=== PATIENT | male | born 1955 | race Caucasian/White ===

== ENCOUNTER 2017-12-18 17:00 | Emergency (ER) | payer SELFPAY ==
[2017-12-18 18:49] LABS: Amphetamine Detected (NotDetected); Barbiturates Screen Not Detected (NotDetected); Benzodiazepine Screen Not Detected (NotDetected); Cocaine Metabolite Screen Not Detected (NotDetected); Medtox Control Line Valid? VALID (VALID); Medtox Reader # READER 1; Methadone Not Detected (NotDetected); Methamphetamine Detected (NotDetected); Opiate Screen Not Detected (NotDetected); Oxycodone Screen Not Detected (NotDetected); Phencyclidine (PCP) Not Detected (NotDetected); THC/Cannabinoid Screen Not Detected (NotDetected); Tricyclic Screen Not Detected (NotDetected)
[2017-12-18 18:53] LABS: Bilirubin Negative (Negative); Blood, Urine Negative (Negative); Clarity CLEAR (Clear); Glucose, Urine (Dipstick) >=1000 mg/dL (Negative); Leukocyte Negative (Negative); Nitrite Negative (Negative); Protein, Urine (Dipstick) Trace mg/dL (Neg-Trace); Specific Gravity, Urine 1.038 (1.002-1.036); Urobilinogen 0.2 mg/dL (0.2-1.0); pH, Urine 5.5 (5.0-9.0)
[2017-12-18 18:53] LABS: #Basophils 0.1 thou/uL (0.0-0.2); #Eosinphils 0.5 thou/uL (0.0-0.7); #Lymphocytes 2.1 thou/uL (1.20-3.40); #Monocytes 0.8 thou/uL (0.11-0.59); %Basophils 1.2 % (0.0-1.0); %Eosinophils 6.1 % (0.0-10.0); %Lymphocytes 24.7 % (21.0-51.0); %Monocytes 9.5 % (0.0-10.0); %Neutrophils 58.6 % (42.0-75.0); Hemoglobin 13.2 g/dL (14.0-18.0); Mean Corpuscular HGB CONC 34.8 g/dL (32.0-36.0); Mean Corpuscular Hemoglobin 29.4 pg (27.0-31.0); Mean Corpuscular Volume 84.5 fL (78.0-98.0); Mean Platelet Volume 7.6 fL (7.4-10.4); Platelet Count 217 thou/uL (130-400); RBC Distribution Width 11.8 % (11.5-14.5); White Blood Cell (WBC) Count 8.5 thou/uL (4.8-10.8)
[2017-12-18 19:10] LABS: ALT (SGPT) 17 U/L (8-55); AST (SGOT) 14 U/L (5-34); Albumin 4.1 g/dL (3.4-4.8); Alkaline Phosphatase 65 U/L (40-150); Anion Gap 12 mmol/L (10-20); BUN (Urea Nitrogen) 20 mg/dL (8.4-25.7); Bilirubin, Total 0.4 mg/dL (0.2-1.2); CK (CPK) 138 U/L (30-200); Calc. Creatinine Clearance 0 mL/min (70-130); Carbon Dioxide 26 mmol/L (23-31); Chloride 106 mmol/L (98-107); Estimated GFR-MDRD 51; Globulin 2.4 g/dL (2.4-3.5); Glucose 219 mg/dL (80-115); Lipase 67 U/L (8-78); Potassium 4.2 mmol/L (3.5-5.1); Protein, Total 6.5 g/dL (5.8-8.1); Sodium 140 mmol/L (136-145)
[2017-12-18 19:13] LABS: Troponin I Less than 0.010 ng/mL (< 0.028)
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
== END 2017-12-18 19:45 | disposition home or self-care (01) ==
LOC: ERS 17:00
DX: F15.10 Other stimulant abuse, uncomplicated (principal); E11.9 Type 2 diabetes mellitus without complications; E78.5 Hyperlipidemia, unspecified; I10 Essential (primary) hypertension; F17.210 Nicotine dependence, cigarettes, uncomplicated; Z79.899 Other long term (current) drug therapy; Z79.84 Long term (current) use of oral hypoglycemic drugs
CPT/HCPCS: 70450; 80053; 80306; 81003; 82550; 82553; 83690; 84484; 85025; 93005

== ENCOUNTER 2019-10-01 12:56 | Observation (INO) | payer MEDICARE ==
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
[2019-10-01 13:39] LABS: #Basophils 0.1 thou/uL (0.0-0.2); #Eosinphils 0.3 thou/uL (0.0-0.7); #Lymphocytes 1.2 thou/uL (1.20-3.40); #Monocytes 0.6 thou/uL (0.11-0.59); #Neutrophils 7.4 thou/uL (1.40-6.50); %Basophils 0.8 % (0.0-1.0); %Eosinophils 3.3 % (0.0-10.0); %Lymphocytes 12.8 % (21.0-51.0); %Monocytes 6.3 % (0.0-10.0); %Neutrophils 76.7 % (42.0-75.0); Hemoglobin 13.3 g/dL (14.0-18.0); Mean Corpuscular HGB CONC 32.8 g/dL (32.0-36.0); Mean Corpuscular Hemoglobin 28.1 pg (27.0-31.0); Mean Corpuscular Volume 85.5 fL (78.0-98.0); Mean Platelet Volume 8.5 fL (7.4-10.4); Platelet Count 183 thou/uL (130-400); RBC Distribution Width 11.8 % (11.5-14.5); Red Blood Cell (RBC) Count 4.73 mill/uL (4.70-6.10); White Blood Cell (WBC) Count 9.6 thou/uL (4.8-10.8)
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
[2019-10-01 14:03] LABS: ALT (SGPT) 23 U/L (8-55); AST (SGOT) 17 U/L (5-34); Acetaminophen Less than 6.0 mcg/mL (10.0-30.0); Albumin 3.9 g/dL (3.4-4.8); Alcohol Less than 10 mg/dL (Less than 10); Alkaline Phosphatase 71 U/L (40-110); Anion Gap 12 mmol/L (10-20); BUN (Urea Nitrogen) 22 mg/dL (8.4-25.7); Bilirubin, Total 0.6 mg/dL (0.2-1.2); Calc. Creatinine Clearance 0 mL/min (70-130); Calcium 9.8 mg/dL (7.8-10.44); Carbon Dioxide 25 mmol/L (23-31); Chloride 103 mmol/L (98-107); Estimated GFR-MDRD 57; Globulin 2.1 g/dL (2.4-3.5); Glucose 405 mg/dL (80-115); Potassium 4.1 mmol/L (3.5-5.1); Salicylate Less than 8.0 mg/dL (15.0-30.0); Sodium 136 mmol/L (136-145)
[2019-10-01] MEDS ORDERED: Ondansetron ODT 4 MG TAB ONE (14:46)
[2019-10-01] MEDS ORDERED: Meclizine HCl 25 MG TAB ONE (16:05)
[2019-10-01 17:42] LABS: Bilirubin Negative (Negative); Blood, Urine Negative (Negative); Clarity Clear (Clear); Glucose, Urine (Dipstick) Greater than 1000 mg/dL (Negative); Leukocyte Negative Leu/uL (Negative); Nitrite Negative (Negative); Protein, Urine (Dipstick) Negative (Neg-Trace); Urobilinogen Normal mg/dL (Less than 2)
[2019-10-01 17:57] LABS: Amphetamine Detected (NotDetected); Barbiturates Screen Not Detected (NotDetected); Benzodiazepine Screen Not Detected (NotDetected); Cocaine Metabolite Screen Not Detected (NotDetected); Medtox Control Line Valid? VALID (VALID); Medtox Reader # READER 4; Methadone Not Detected (NotDetected); Methamphetamine Detected (NotDetected); Opiate Screen Not Detected (NotDetected); Oxycodone Screen Not Detected (NotDetected); Phencyclidine (PCP) Not Detected (NotDetected); THC/Cannabinoid Screen Not Detected (NotDetected); Tricyclic Screen Not Detected (NotDetected)
[2019-10-01] MEDS ORDERED: Dextrose 50% Abboject 50 ML SYRINGE SLOW IVP PRN ×2 (17:59→18:03)
[2019-10-01] MEDS ORDERED: hydrALAZINE 20 MG/ML VIAL SLOW IVP PRN (17:59)
[2019-10-01] MEDS ORDERED: Dextrose 5% in Water 1,000 ML IV PRN ×2 (17:59→18:03)
[2019-10-01] MEDS ORDERED: Promethazine HCl 25 MG in Sodium Chloride 0.9% 50 ML IVPB PRN (18:06)
[2019-10-01] MEDS ORDERED: Scopolamine 1.5 mg/72 hour Patch TD SCH (18:30)
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
[2019-10-01] MEDS ORDERED: Ondansetron PF 4 MG/2 ML Vial IVP PRN (19:50)
[2019-10-01] MEDS: Senokot S 8.6-50 MG TAB PO SCH (21:32)
[2019-10-01] MEDS: Sodium Chloride 0.9% 1,000 ML IV SCH (21:33)
[2019-10-01] MEDS: Insulin Regular 300 UNITS/3 ML VIAL SC PRN (21:33)
[2019-10-01 22:21] VITALS: BMI 25.2
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
[2019-10-02] MEDS: Acetaminophen 500 MG TAB PO SCH ×3 (00:08→13:56)
[2019-10-02] MEDS: Sodium Chloride 0.9% 1,000 ML IV SCH (04:33)
[2019-10-02] MEDS: Insulin Regular 300 UNITS/3 ML VIAL SC PRN ×2 (05:50→13:55)
[2019-10-02] MEDS ORDERED: Allopurinol 300 MG TAB PO SCH (09:00)
[2019-10-02] MEDS ORDERED: Tamsulosin HCl 0.4 MG CAP PO SCH (09:00)
[2019-10-02] MEDS: Senokot S 8.6-50 MG TAB PO SCH (12:05)
[2019-10-02 12:18] VITALS: BP 162/81; TEMP 97
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
[2019-10-02 17:02] LABS: Hemoglobin A1c Greater than 14.0 % (4.0-6.0)
== END 2019-10-02 15:35 | disposition home or self-care (01) ==
LOC: ERS 12:56 → SURG A 17:45
PROVIDERS: ADMIT Surgery; ATTEND Surgery
DX: S06.0X9A Concussion with loss of consciousness of unspecified duration, initial encounter (principal); R40.2410 Glasgow coma scale score 13-15, unspecified time; E11.65 Type 2 diabetes mellitus with hyperglycemia; M10.9 Gout, unspecified; F17.210 Nicotine dependence, cigarettes, uncomplicated; M47.812 Spondylosis without myelopathy or radiculopathy, cervical region; F15.11 Other stimulant abuse, in remission; F12.10 Cannabis abuse, uncomplicated; Z79.1 Long term (current) use of non-steroidal anti-inflammatories (NSAID); Z79.4 Long term (current) use of insulin; Z79.899 Other long term (current) drug therapy; V69.3XXA Occupant (driver) (passenger) of heavy transport vehicle injured in unspecified nontraffic accident, initial encounter
CPT/HCPCS: 70450; 71250; 72125; 74177; 80053; 80306; 80307; 81003; 82962 ×2; 83036; 85025; 96361 ×3; 96374; 97139 ×3; 99285; G0378 ×3; J0360; J1815; Q0162; 36416; 96360; G0390

== ENCOUNTER 2019-10-14 23:22 | Emergency (ER) | payer MEDICARE, OTHER ==
[2019-10-14] MEDS ORDERED: Ibuprofen 800 MG TAB ONE (23:41)
[2019-10-15 00:29] LABS: Bilirubin Negative (Negative); Blood, Urine Negative (Negative); Clarity Clear (Clear); Glucose, Urine (Dipstick) Greater than 1000 mg/dL (Negative); Leukocyte Negative Leu/uL (Negative); Nitrite Negative (Negative); Protein, Urine (Dipstick) Negative (Neg-Trace); Urobilinogen Normal mg/dL (Less than 2)
== END 2019-10-15 00:46 | disposition home or self-care (01) ==
LOC: ERS 23:22
DX: F07.81 Postconcussional syndrome (principal); E11.9 Type 2 diabetes mellitus without complications; E78.00 Pure hypercholesterolemia, unspecified; E78.5 Hyperlipidemia, unspecified; I10 Essential (primary) hypertension; F17.210 Nicotine dependence, cigarettes, uncomplicated; Z79.84 Long term (current) use of oral hypoglycemic drugs; Z79.899 Other long term (current) drug therapy
CPT/HCPCS: 81003; 99284

== ENCOUNTER 2020-05-22 08:42 | Outpatient (CLI) | payer MEDICARE ==
--- NOTE | 2020-05-22 10:08 | CT ---
CT ABDOMEN AND PELVIS WITH AND WITHOUT IV CONTRAST 05/22/2020 CLINICAL INFORMATION: Urinary bladder cancer. Elevated PSA. Prostate cancer. History of prior radiation treatment. COMPARISON: Noncontrast CT abdomen and pelvis on 10/01/2019 Technique: Multiple contiguous axial CT images are obtained through the abdomen and pelvis with IV contrast. Cor onal reformatted images are provided. FINDINGS: Lower Chest: Lung bases are clear. No pulmonary nodule is seen at either visualized lung bases. Vessels: Vascular calcifications are present in the abdominal aorta and iliac arteries. Abdomen: Portal vein:Patent Gallbladder: Within normal limits for CT imaging. Liver: within normal limits. Spleen: within normal limits. Pancreas: within normal limits. Adrenals: within normal limits. Kidneys: Symmetric bilateral perinephric stranding noted which is nonspecific. This is stable from pr ior exam. A subcentimeter too small to characterize hypodense lesion is seen in the midportion left kidney. A few ill-defined low attenuation areas are seen in the midportion and inferior pole left kid nora. This may be related to the phase of enhancement as these areas are not seen on the delayed images through the level of the kidneys. Pyelonephritis would be difficult to entirely exclude. No pe rinephric fluid collection is seen. There is no hydronephrosis. Bowel: Small amount retained fecal material is seen throughout the colon. Loops of small bowel are no rmal in caliber. Appendix: The appendix is visualized and normal in caliber. Peritoneum: No ascites or free air; no fluid collection. Mesentery and Retroperitoneum: There is a mildly enlarged lymph node seen within the lateral right pe lvis which measures 1.2 cm in short axis dimension. No additional enlarged lymph nodes are seen Abdominal Wall: within normal limits. Pelvis: Reproductive Organs: No pelvic masses. Bladder: Mostly urinary bladder do appear mildly prominent, this is probably related to incomplete di stention. Bones: Degenerative changes are seen in the spine. No suspicious lytic or sclerotic osseous lesions a re identified. There is a remote fracture involving the tip of the left transverse process L2 vertebral body. IMPRESSION: 1. Mildly enlarged right pelvic lymph node. No additional enlarged lymph nodes are seen. 2. Slight heterogeneity inferior pole left kidney on portal venous phase imaging which is not appreci ated on delayed phase of imaging. This could be related to phase of enhancement but is asymmetric compared to the contralateral right kidney. Pyelonephritis would be difficult to exclude. Urinalysis is suggested for further evaluation.
[2020-05-22] MEDS ORDERED: Iopamidol 370 76% 100 ML VIAL ONE (13:17)
--- NOTE | 2020-05-22 13:19 | NM ---
NM Bone Scan STANDARD History: Prostate cancer. Bladder cancer. Comparison: CT examination same day Findings: Delayed whole-body imaging performed after the intravenous administration 32.6 mCi techneti um 99m MDP. Adequate background of radiotracer uptake. Degenerative change L4/L5 and L3/L4. Mild to moderate T9/T 10 degenerative uptake. Urinary bladder and kidneys are visualized. No abnormal uptake to suggest osseous metastatic disease. Impression: No evidence for osseous metastatic disease.
== END 2020-05-22 08:43 | disposition home or self-care (01) ==
LOC: CT 08:42
PROVIDERS: ATTEND Urology
DX: C67.9 Malignant neoplasm of bladder, unspecified (principal); C61 Malignant neoplasm of prostate; R97.21 Rising PSA following treatment for malignant neoplasm of prostate; R59.0 Localized enlarged lymph nodes; R93.422 Abnormal radiologic findings on diagnostic imaging of left kidney
CPT/HCPCS: 74178; 78306; 82565; A9503; Q9967

== ENCOUNTER 2020-08-27 20:33 | Inpatient (IN) | payer MEDICARE, MEDICAID ==
[2020-08-27 21:43] LABS: #Basophils 0.1 thou/uL (0.0-0.2); #Eosinphils 0.2 thou/uL (0.0-0.7); #Lymphocytes 1.3 thou/uL (1.20-3.40); #Monocytes 1.2 thou/uL (0.11-0.59); #Neutrophils 9.9 thou/uL (1.40-6.50); %Basophils 0.4 % (0.0-1.0); %Eosinophils 1.7 % (0.0-10.0); %Lymphocytes 9.9 % (21.0-51.0); %Monocytes 9.5 % (0.0-10.0); %Neutrophils 78.6 % (42.0-75.0); Hemoglobin 15.3 g/dL (14.0-18.0); Mean Corpuscular HGB CONC 33.4 g/dL (32.0-36.0); Mean Corpuscular Hemoglobin 28.2 pg (27.0-31.0); Mean Corpuscular Volume 84.5 fL (78.0-98.0); Mean Platelet Volume 8.5 fL (7.4-10.4); Platelet Count 251 thou/uL (130-400); RBC Distribution Width 11.7 % (11.5-14.5); Red Blood Cell (RBC) Count 5.41 mill/uL (4.70-6.10); White Blood Cell (WBC) Count 12.6 thou/uL (4.8-10.8)
[2020-08-27 22:13] LABS: ALT (SGPT) 17 U/L (8-55); AST (SGOT) 10 U/L (5-34); Albumin 3.7 g/dL (3.4-4.8); Alkaline Phosphatase 128 U/L (40-110); Anion Gap 15 mmol/L (10-20); BUN (Urea Nitrogen) 27 mg/dL (8.4-25.7); Bilirubin, Total 0.5 mg/dL (0.2-1.2); Calc. Creatinine Clearance 0 mL/min (70-130); Calcium 10.6 mg/dL (7.8-10.44); Carbon Dioxide 28 mmol/L (23-31); Chloride 92 mmol/L (98-107); Globulin 3.3 g/dL (2.4-3.5); Glucose 462 mg/dL (80-115); Potassium 5.1 mmol/L (3.5-5.1); Sodium 130 mmol/L (136-145)
[2020-08-27] MEDS ORDERED: Cefepime 2 GM VIAL ONE ×2 (23:02→23:03)
[2020-08-27] MEDS ORDERED: Ketorolac Tromethamine 30 MG/ML VIAL ONE (23:02)
[2020-08-27] MEDS ORDERED: Vancomycin 1.5 GRAM/300 ML BAG 1.5 GM in Premix Bag 1 BAG IVPB SCH (23:30)
[2020-08-28 00:40] VITALS: BMI 24.3
[2020-08-28] MEDS ORDERED: Ondansetron ODT 4 MG TAB SL PRN (00:45)
[2020-08-28] MEDS ORDERED: Acetaminophen 325 MG TAB PO PRN ×2 (00:45→08:06)
[2020-08-28] MEDS ORDERED: Ondansetron PF 4 MG/2 ML Vial IVP PRN ×4 (00:45→10:30)
[2020-08-28 05:12] LABS: SARS-CoV-2 PCR by NAA Not Detected (NotDetected)
[2020-08-28] MEDS ORDERED: Dextrose 50% Abboject 50 ML SYRINGE IVP PRN (08:15)
[2020-08-28] MEDS ORDERED: Insulin Regular 300 UNITS/3 ML VIAL SC PRN (08:15)
[2020-08-28] MEDS ORDERED: Dextrose 5% in Water 1,000 ML IV PRN (08:15)
[2020-08-28] MEDS: Dextrose 5 % And 0.9 % NaCl 1,000 ML IV SCH ×2 (08:55→18:38)
[2020-08-28] MEDS: Enoxaparin Sodium 30 MG/0.3 ML SYRINGE SC SCH (09:03)
[2020-08-28] MEDS: Cefepime 2 GM in Sodium Chloride 0.9% 100 ML IVPB SCH ×2 (09:03→18:26)
[2020-08-28] MEDS: Alogliptin 25 MG TAB PO SCH (09:03)
[2020-08-28] MEDS: Vancomycin 1 GM in Premix Bag 1 BAG IVPB SCH ×2 (09:57→22:05)
[2020-08-28] MEDS ORDERED: diphenhydrAMINE 25 MG CAP PO PRN (10:30)
[2020-08-28] MEDS ORDERED: Morphine 4 MG/ML VIAL SLOW IVP SCH (10:30)
[2020-08-28] MEDS ORDERED: Zolpidem Tartrate 5 MG TAB PO PRN (10:30)
[2020-08-28] MEDS ORDERED: Promethazine HCl 25 MG/ML VIAL IM PRN (10:30)
[2020-08-28] MEDS ORDERED: Naloxone HCl 0.4 mg/ml Vial IV PRN (10:30)
[2020-08-28] MEDS ORDERED: diphenhydrAMINE 50 MG/ML VIAL IM/IV PRN (10:30)
[2020-08-28] MEDS: Acetaminophen 500 MG TAB PO SCH ×2 (11:47→18:27)
[2020-08-28] MEDS: HYDROmorphone 10 mg/100 ml CADD IVPB PRN ×2 (12:56→19:51)
[2020-08-28] MEDS ORDERED: Fentanyl 250 MCG/5 ML VIAL ONE (13:39)
[2020-08-28] MEDS ORDERED: Midazolam HCl 2 mg/2 ml Vial ONE (16:45)
[2020-08-28] MEDS ORDERED: Fentanyl 100 MCG/2 ML VIAL ONE (16:45)
[2020-08-28] MEDS ORDERED: Propofol 500 MG/50 ML VIAL ONE ×2 (16:45→16:49)
[2020-08-28] MEDS ORDERED: Lidocaine 1% PF 5 ML VIAL ONE (17:10)
[2020-08-28] MEDS ORDERED: Ondansetron PF 4 MG/2 ML Vial ONE (17:10)
[2020-08-28] MEDS ORDERED: PROPOFOL 200 MG/20 ML VIAL ONE (17:10)
[2020-08-28] MEDS ORDERED: Promethazine HCl 25 MG/ML VIAL SLOW IVP PRN (17:24)
[2020-08-28] MEDS ORDERED: Ondansetron HCl/PF 4 MG/2 ML Vial IVP PRN (17:24)
[2020-08-28] MEDS ORDERED: traMADol HCl 50 MG TAB PO PRN (17:45)
[2020-08-29] MEDS: Ibuprofen 600 MG TAB PO PRN (01:06)
[2020-08-29] MEDS: Acetaminophen 500 MG TAB PO SCH ×4 (01:06→17:35)
[2020-08-29] MEDS: Cefepime 2 GM in Sodium Chloride 0.9% 100 ML IVPB SCH ×3 (01:10→17:42)
[2020-08-29] MEDS: Dextrose 5 % And 0.9 % NaCl 1,000 ML IV SCH ×2 (04:17→13:39)
[2020-08-29 05:08] LABS: #Basophils 0.1 thou/uL (0.0-0.2); #Eosinphils 0.3 thou/uL (0.0-0.7); #Lymphocytes 1.5 thou/uL (1.20-3.40); #Monocytes 1.1 thou/uL (0.11-0.59); #Neutrophils 6.4 thou/uL (1.40-6.50); %Basophils 0.6 % (0.0-1.0); %Eosinophils 2.9 % (0.0-10.0); %Lymphocytes 16.2 % (21.0-51.0); %Monocytes 11.7 % (0.0-10.0); %Neutrophils 68.6 % (42.0-75.0); Hemoglobin 13.3 g/dL (14.0-18.0); Mean Corpuscular HGB CONC 31.7 g/dL (32.0-36.0); Mean Corpuscular Hemoglobin 26.8 pg (27.0-31.0); Mean Corpuscular Volume 84.6 fL (78.0-98.0); Platelet Count 236 thou/uL (130-400); RBC Distribution Width 11.7 % (11.5-14.5); Red Blood Cell (RBC) Count 4.97 mill/uL (4.70-6.10); White Blood Cell (WBC) Count 9.3 thou/uL (4.8-10.8)
[2020-08-29 05:17] LABS: Hemoglobin A1c Greater than 14.0 % (4.0-6.0)
[2020-08-29 05:31] LABS: Anion Gap 12 mmol/L (10-20); BUN (Urea Nitrogen) 18 mg/dL (8.4-25.7); Calc. Creatinine Clearance 80 mL/min (70-130); Calcium 9.4 mg/dL (7.8-10.44); Carbon Dioxide 23 mmol/L (23-31); Chloride 102 mmol/L (98-107); Glucose 292 mg/dL (80-115); Potassium 4.3 mmol/L (3.5-5.1); Sodium 133 mmol/L (136-145)
[2020-08-29] MEDS: Insulin Regular 300 UNITS/3 ML VIAL SC PRN ×3 (05:56→17:36)
[2020-08-29] MEDS: Alogliptin 25 MG TAB PO SCH (09:46)
[2020-08-29] MEDS: Meloxicam 15 MG TAB PO SCH (09:46)
[2020-08-29] MEDS: Enoxaparin Sodium 30 MG/0.3 ML SYRINGE SC SCH (09:46)
[2020-08-29] MEDS: Vancomycin 1 GM in Premix Bag 1 BAG IVPB SCH (10:44)
[2020-08-29] MEDS: VANCOMYCIN 2 GRAM/400 ML BAG 2 GM in Premix Bag 1 BAG IVPB SCH (11:51)
[2020-08-29] MEDS ORDERED: Lantus 1000 UNITS/10 ML VIAL SC SCH (13:15)
[2020-08-29] MEDS ORDERED: Sodium Chloride 0.9% 1,000 ML IV SCH (13:15)
[2020-08-29] MEDS: metFORMIN 500 MG TAB PO SCH (17:34)
[2020-08-29] MEDS: Lisinopril 20 MG TAB PO SCH (21:24)
[2020-08-29] MEDS: Simvastatin 10 MG TAB PO SCH (21:25)
[2020-08-30] MEDS: Acetaminophen 500 MG TAB PO SCH ×4 (00:13→17:43)
[2020-08-30] MEDS: VANCOMYCIN 2 GRAM/400 ML BAG 2 GM in Premix Bag 1 BAG IVPB SCH ×2 (00:13→11:20)
[2020-08-30] MEDS: Cefepime 2 GM in Sodium Chloride 0.9% 100 ML IVPB SCH ×3 (01:53→17:37)
[2020-08-30] MEDS: HYDROmorphone 10 mg/100 ml CADD IVPB PRN (05:22)
[2020-08-30 05:46] LABS: #Basophils 0.1 thou/uL (0.0-0.2); #Eosinphils 0.3 thou/uL (0.0-0.7); #Lymphocytes 1.5 thou/uL (1.20-3.40); #Monocytes 0.8 thou/uL (0.11-0.59); #Neutrophils 5.3 thou/uL (1.40-6.50); %Basophils 0.8 % (0.0-1.0); %Eosinophils 3.9 % (0.0-10.0); %Monocytes 10.1 % (0.0-10.0); %Neutrophils 66.3 % (42.0-75.0); Hemoglobin 13.1 g/dL (14.0-18.0); Mean Corpuscular HGB CONC 33.6 g/dL (32.0-36.0); Mean Corpuscular Hemoglobin 28.6 pg (27.0-31.0); Mean Corpuscular Volume 85.1 fL (78.0-98.0); Mean Platelet Volume 7.9 fL (7.4-10.4); Platelet Count 242 thou/uL (130-400); RBC Distribution Width 11.7 % (11.5-14.5); Red Blood Cell (RBC) Count 4.57 mill/uL (4.70-6.10)
[2020-08-30 06:04] LABS: Anion Gap 10 mmol/L (10-20); BUN (Urea Nitrogen) 18 mg/dL (8.4-25.7); Calc. Creatinine Clearance 92 mL/min (70-130); Calcium 9.2 mg/dL (7.8-10.44); Carbon Dioxide 22 mmol/L (23-31); Chloride 106 mmol/L (98-107); Glucose 124 mg/dL (80-115); Potassium 4.2 mmol/L (3.5-5.1); Sodium 134 mmol/L (136-145); Uric Acid 2.7 mg/dL (3.5-7.2)
[2020-08-30] MEDS: metFORMIN 500 MG TAB PO SCH ×2 (08:21→17:37)
[2020-08-30] MEDS: Alogliptin 25 MG TAB PO SCH (08:21)
[2020-08-30] MEDS: Meloxicam 15 MG TAB PO SCH (08:21)
[2020-08-30] MEDS: Lisinopril 20 MG TAB PO SCH ×2 (08:21→20:01)
[2020-08-30] MEDS: Lantus 1000 UNITS/10 ML VIAL SC SCH (08:22)
[2020-08-30] MEDS: Enoxaparin Sodium 40 MG/0.4 ML SYRINGE SC SCH (08:22)
[2020-08-30] MEDS ORDERED: HYDROcodone/Acetaminophen 7.5/325 mg Tablet PO PRN (11:18)
[2020-08-30] MEDS: Ibuprofen 800 MG TAB PO SCH ×2 (11:21→17:37)
[2020-08-30] MEDS: Insulin Regular 300 UNITS/3 ML VIAL SC PRN ×2 (12:09→17:37)
[2020-08-30] MEDS: HYDROcodone/Acetaminophen 7.5/325 mg Tablet PO PRN ×2 (15:21→22:28)
[2020-08-30] MEDS: Simvastatin 10 MG TAB PO SCH (20:01)
[2020-08-30] MEDS: Terazosin HCl 5 MG CAP PO SCH (20:02)
[2020-08-30] MEDS: Ibuprofen 600 MG TAB PO PRN (22:29)
[2020-08-30] MEDS: Vancomycin 1.5 GRAM/300 ML BAG 1.5 GM in Premix Bag 1 BAG IVPB SCH (22:38)
[2020-08-31] MEDS: Acetaminophen 500 MG TAB PO SCH ×4 (00:13→18:23)
[2020-08-31] MEDS: Cefepime 2 GM in Sodium Chloride 0.9% 100 ML IVPB SCH ×3 (00:14→17:44)
[2020-08-31 05:53] LABS: #Basophils 0.1 thou/uL (0.0-0.2); #Eosinphils 0.2 thou/uL (0.0-0.7); #Lymphocytes 1.3 thou/uL (1.20-3.40); #Monocytes 0.5 thou/uL (0.11-0.59); #Neutrophils 4.2 thou/uL (1.40-6.50); %Basophils 0.8 % (0.0-1.0); %Eosinophils 3.1 % (0.0-10.0); %Monocytes 8.6 % (0.0-10.0); %Neutrophils 67.5 % (42.0-75.0); Mean Corpuscular HGB CONC 33.4 g/dL (32.0-36.0); Mean Corpuscular Hemoglobin 28.3 pg (27.0-31.0); Mean Corpuscular Volume 84.8 fL (78.0-98.0); Mean Platelet Volume 7.8 fL (7.4-10.4); Platelet Count 238 thou/uL (130-400); RBC Distribution Width 11.6 % (11.5-14.5); Red Blood Cell (RBC) Count 4.24 mill/uL (4.70-6.10); White Blood Cell (WBC) Count 6.3 thou/uL (4.8-10.8)
[2020-08-31 06:16] LABS: ALT (SGPT) 22 U/L (8-55); AST (SGOT) 21 U/L (5-34); Albumin 2.6 g/dL (3.4-4.8); Alkaline Phosphatase 161 U/L (40-110); Anion Gap 11 mmol/L (10-20); BUN (Urea Nitrogen) 22 mg/dL (8.4-25.7); Bilirubin, Direct 0.1 mg/dL (0.1-0.3); Bilirubin, Total 0.2 mg/dL (0.2-1.2); Calc. Creatinine Clearance 80 mL/min (70-130); Carbon Dioxide 20 mmol/L (23-31); Chloride 108 mmol/L (98-107); Glucose 71 mg/dL (80-115); Potassium 4.2 mmol/L (3.5-5.1); Protein, Total 5.3 g/dL (5.8-8.1); Sodium 135 mmol/L (136-145)
[2020-08-31] MEDS: Ibuprofen 800 MG TAB PO SCH ×3 (08:33→17:43)
[2020-08-31] MEDS: Calcium Carbonate 500 MG ChewTAB PO SCH ×3 (08:33→21:07)
[2020-08-31] MEDS: Alogliptin 25 MG TAB PO SCH (08:33)
[2020-08-31] MEDS: metFORMIN 500 MG TAB PO SCH ×2 (08:33→17:42)
[2020-08-31] MEDS: Lisinopril 20 MG TAB PO SCH ×2 (08:34→21:06)
[2020-08-31] MEDS: Lantus 1000 UNITS/10 ML VIAL SC SCH (08:34)
[2020-08-31] MEDS: Enoxaparin Sodium 40 MG/0.4 ML SYRINGE SC SCH (08:34)
[2020-08-31] MEDS: Vancomycin 1.5 GRAM/300 ML BAG 1.5 GM in Premix Bag 1 BAG IVPB SCH (11:49)
[2020-08-31] MEDS: HYDROcodone/Acetaminophen 7.5/325 mg Tablet PO PRN ×2 (11:51→17:39)
[2020-08-31] MEDS: Ciprofloxacin 500 MG TAB PO SCH (21:06)
[2020-08-31] MEDS: Sulfameth/Trimethoprim DS 800-160mg TAB PO SCH (21:06)
[2020-08-31] MEDS: Terazosin HCl 5 MG CAP PO SCH (21:07)
[2020-08-31] MEDS: Simvastatin 10 MG TAB PO SCH (21:07)
[2020-09-01] MEDS: Acetaminophen 500 MG TAB PO SCH ×4 (00:07→16:39)
[2020-09-01] MEDS: Ciprofloxacin 500 MG TAB PO SCH (06:09)
[2020-09-01] MEDS: Enoxaparin Sodium 40 MG/0.4 ML SYRINGE SC SCH (08:30)
[2020-09-01] MEDS: Lantus 1000 UNITS/10 ML VIAL SC SCH (08:30)
[2020-09-01] MEDS: Sulfameth/Trimethoprim DS 800-160mg TAB PO SCH (08:31)
[2020-09-01] MEDS: Lisinopril 20 MG TAB PO SCH (08:31)
[2020-09-01] MEDS: Ibuprofen 800 MG TAB PO SCH ×3 (08:31→16:38)
[2020-09-01] MEDS: Alogliptin 25 MG TAB PO SCH (08:31)
[2020-09-01] MEDS: Calcium Carbonate 500 MG ChewTAB PO SCH ×2 (08:31→14:55)
[2020-09-01] MEDS: metFORMIN 500 MG TAB PO SCH ×2 (08:31→16:38)
[2020-09-01 16:17] VITALS: BP 128/75; TEMP 98.2
[2020-09-01] MEDS: HYDROcodone/Acetaminophen 7.5/325 mg Tablet PO PRN (16:38)
== END 2020-09-01 18:22 | disposition home or self-care (01) | DRG 854 ==
LOC: ERS 20:33 → SURG B 22:48
PROVIDERS: ADMIT Specialist; ATTEND Specialist
PROC: 0Y6P0Z1 Detachment at Right 1st Toe, High, Open Approach (ICD-10-PCS; principal; 2020-08-28)
DX: A41.9 Sepsis, unspecified organism (principal); E87.1 Hypo-osmolality and hyponatremia; M86.171 Other acute osteomyelitis, right ankle and foot; E11.69 Type 2 diabetes mellitus with other specified complication; E78.5 Hyperlipidemia, unspecified; F17.210 Nicotine dependence, cigarettes, uncomplicated; F32.9 Major depressive disorder, single episode, unspecified; M10.9 Gout, unspecified; C61 Malignant neoplasm of prostate; I12.9 Hypertensive chronic kidney disease with stage 1 through stage 4 chronic kidney disease, or unspecified chronic kidney disease; N18.9 Chronic kidney disease, unspecified; E11.22 Type 2 diabetes mellitus with diabetic chronic kidney disease; F12.90 Cannabis use, unspecified, uncomplicated; M54.9 Dorsalgia, unspecified; Z79.4 Long term (current) use of insulin; Z85.51 Personal history of malignant neoplasm of bladder
CPT/HCPCS: 36415; 36416; 71045; 72070; 80048; 80053; 80076; 80202; 82010; 83036; 83605; 84153; 84484; 84550; 85025; 87040; 87635; 88305; 93005; 96365; 96375; J0692; J1650; J1815; J1885; J2250; J2270; J2405; J2704; J3010; J3370; J3490; U0003; U0005

== ENCOUNTER 2020-09-19 07:08 | Emergency (ER) | payer MEDICARE ==
[2020-09-19] MEDS ORDERED: EPINEPHrine 1 MG/ML AMP ONE (07:16)
[2020-09-19] MEDS ORDERED: Dexamethasone 10 MG/ML VIAL ONE (07:17)
[2020-09-19] MEDS ORDERED: diphenhydrAMINE 50 MG/ML VIAL ONE (07:17)
[2020-09-19] MEDS ORDERED: Ondansetron PF 4 MG/2 ML Vial ONE (07:24)
[2020-09-19 07:35] LABS: #Eosinphils 0.2 thou/uL (0.0-0.7); #Lymphocytes 1.2 thou/uL (1.20-3.40); #Monocytes 0.3 thou/uL (0.11-0.59); #Neutrophils 3.8 thou/uL (1.40-6.50); %Basophils 0.3 % (0.0-1.0); %Eosinophils 3.2 % (0.0-10.0); %Lymphocytes 22.3 % (21.0-51.0); %Neutrophils 68.2 % (42.0-75.0); Hemoglobin 12.4 g/dL (14.0-18.0); Mean Corpuscular HGB CONC 33.4 g/dL (32.0-36.0); Mean Corpuscular Hemoglobin 28.3 pg (27.0-31.0); Mean Corpuscular Volume 84.6 fL (78.0-98.0); Mean Platelet Volume 8.1 fL (7.4-10.4); Platelet Count 261 thou/uL (130-400); RBC Distribution Width 12.5 % (11.5-14.5); Red Blood Cell (RBC) Count 4.41 mill/uL (4.70-6.10); White Blood Cell (WBC) Count 5.5 thou/uL (4.8-10.8)
[2020-09-19 07:56] LABS: ALT (SGPT) 8 U/L (8-55); AST (SGOT) 7 U/L (5-34); Albumin 3.2 g/dL (3.4-4.8); Alkaline Phosphatase 86 U/L (40-110); Anion Gap 14 mmol/L (10-20); BUN (Urea Nitrogen) 38 mg/dL (8.4-25.7); Bilirubin, Total 0.2 mg/dL (0.2-1.2); CK (CPK) 39 U/L (30-200); Calc. Creatinine Clearance 0 mL/min (70-130); Calcium 9.7 mg/dL (7.8-10.44); Carbon Dioxide 25 mmol/L (23-31); Chloride 102 mmol/L (98-107); Globulin 2.5 g/dL (2.4-3.5); Glucose 297 mg/dL (80-115); Lipase 49 U/L (8-78); Potassium 4.6 mmol/L (3.5-5.1); Protein, Total 5.7 g/dL (5.8-8.1); Sodium 136 mmol/L (136-145)
[2020-09-19] MEDS ORDERED: Famotidine/PF 20 mg/2ml Vial ONE (07:56)
[2020-09-19 08:40] LABS: Acetaminophen Less than 6.0 mcg/mL (10.0-30.0); Alcohol Less than 10 mg/dL (Less than 10); Salicylate Less than 8.0 mg/dL (15.0-30.0)
[2020-09-19 10:26] LABS: Lactic Acid 1.4 mmol/L (0.5-2.2)
[2020-09-19 10:44] LABS: SARS-CoV-2 NAA Rapid Test Not Detected (NotDetected)
[2020-09-19 10:45] LABS: Bilirubin Negative (Negative); Blood, Urine Negative (Negative); Clarity Clear (Clear); Glucose, Urine (Dipstick) 150 mg/dL (Negative); Ketone, Urine Negative (Negative); Leukocyte Negative Leu/uL (Negative); Nitrite Negative (Negative); Protein, Urine (Dipstick) Negative (Neg-Trace); Specific Gravity, Urine 1.019 (1.002-1.036); Urobilinogen Normal mg/dL (Less than 2)
[2020-09-19 10:55] LABS: Amphetamine Detected (NotDetected); Barbiturates Screen Not Detected (NotDetected); Benzodiazepine Screen Not Detected (NotDetected); Cocaine Metabolite Screen Not Detected (NotDetected); Medtox Control Line Valid? VALID (VALID); Medtox Reader # READER 4; Methadone Not Detected (NotDetected); Methamphetamine Detected (NotDetected); Opiate Screen Detected (NotDetected); Oxycodone Screen Not Detected (NotDetected); Phencyclidine (PCP) Not Detected (NotDetected); THC/Cannabinoid Screen Not Detected (NotDetected); Tricyclic Screen Not Detected (NotDetected)
[2020-09-19] MEDS ORDERED: Iopamidol-370 76% 500 ML 1 ML ONE (12:35)
== END 2020-09-19 12:50 | disposition home or self-care (01) ==
LOC: ERS 07:08
DX: R06.02 Shortness of breath (principal); T36.8X5A Adverse effect of other systemic antibiotics, initial encounter; E11.9 Type 2 diabetes mellitus without complications; E78.5 Hyperlipidemia, unspecified; E78.00 Pure hypercholesterolemia, unspecified; I10 Essential (primary) hypertension; M10.9 Gout, unspecified; F17.210 Nicotine dependence, cigarettes, uncomplicated; Z79.84 Long term (current) use of oral hypoglycemic drugs; Z79.899 Other long term (current) drug therapy
CPT/HCPCS: 0240U; 71045; 71275; 80053; 80306; 80307; 81003; 82550; 83605; 83690; 83880; 84484; 85025; 85379; 87040; 93005; 96372; 96374; 96375; 99285; 36415; J0171; J1100; J1200; J2405; Q9967; S0028

== ENCOUNTER 2020-09-30 12:42 | Emergency (ER) | payer MEDICARE, MEDICAID ==
[2020-09-30 13:33] LABS: #Basophils 0.1 thou/uL (0.0-0.2); #Eosinphils 0.5 thou/uL (0.0-0.7); #Lymphocytes 1.7 thou/uL (1.20-3.40); #Monocytes 0.8 thou/uL (0.11-0.59); #Neutrophils 7.6 thou/uL (1.40-6.50); %Basophils 1.1 % (0.0-1.0); %Eosinophils 4.6 % (0.0-10.0); %Lymphocytes 16.2 % (21.0-51.0); %Monocytes 7.8 % (0.0-10.0); %Neutrophils 70.3 % (42.0-75.0); Mean Corpuscular HGB CONC 33.3 g/dL (32.0-36.0); Mean Corpuscular Hemoglobin 28.2 pg (27.0-31.0); Mean Corpuscular Volume 84.7 fL (78.0-98.0); Mean Platelet Volume 7.7 fL (7.4-10.4); Platelet Count 256 thou/uL (130-400); RBC Distribution Width 12.4 % (11.5-14.5); Red Blood Cell (RBC) Count 3.92 mill/uL (4.70-6.10); White Blood Cell (WBC) Count 10.8 thou/uL (4.8-10.8)
[2020-09-30 13:56] LABS: ALT (SGPT) 9 U/L (8-55); AST (SGOT) 10 U/L (5-34); Albumin 3.6 g/dL (3.4-4.8); Alkaline Phosphatase 73 U/L (40-110); Anion Gap 13 mmol/L (10-20); BUN (Urea Nitrogen) 22 mg/dL (8.4-25.7); Bilirubin, Total Less than 0.2 mg/dL (0.2-1.2); CK (CPK) 74 U/L (30-200); Calc. Creatinine Clearance 0 mL/min (70-130); Calcium 9.9 mg/dL (7.8-10.44); Carbon Dioxide 28 mmol/L (23-31); Chloride 100 mmol/L (98-107); Globulin 2.5 g/dL (2.4-3.5); Glucose 270 mg/dL (80-115); Potassium 5.1 mmol/L (3.5-5.1); Protein, Total 6.1 g/dL (5.8-8.1); Sodium 136 mmol/L (136-145)
== END 2020-09-30 16:02 | disposition home or self-care (01) ==
LOC: ERS 12:42
DX: M79.89 Other specified soft tissue disorders (principal); E11.9 Type 2 diabetes mellitus without complications; E78.5 Hyperlipidemia, unspecified; I10 Essential (primary) hypertension; E78.00 Pure hypercholesterolemia, unspecified; M10.9 Gout, unspecified; F17.210 Nicotine dependence, cigarettes, uncomplicated; Z89.411 Acquired absence of right great toe; M79.604 Pain in right leg; M79.605 Pain in left leg
CPT/HCPCS: 36415; 80053; 82550; 83880; 85025; 85379; 93970

== ENCOUNTER 2020-10-27 12:46 | Emergency (ER) | payer MEDICARE, MEDICAID ==
[2020-10-27 13:27] LABS: #Basophils 0.1 thou/uL (0.0-0.2); #Eosinphils 0.3 thou/uL (0.0-0.7); #Lymphocytes 1.6 thou/uL (1.20-3.40); #Monocytes 0.6 thou/uL (0.11-0.59); #Neutrophils 3.9 thou/uL (1.40-6.50); %Eosinophils 4.4 % (0.0-10.0); %Lymphocytes 25.2 % (21.0-51.0); %Monocytes 8.7 % (0.0-10.0); %Neutrophils 60.7 % (42.0-75.0); Hemoglobin 11.4 g/dL (14.0-18.0); Mean Corpuscular HGB CONC 33.4 g/dL (32.0-36.0); Mean Corpuscular Volume 83.7 fL (78.0-98.0); Platelet Count 178 thou/uL (130-400); RBC Distribution Width 12.1 % (11.5-14.5); Red Blood Cell (RBC) Count 4.09 mill/uL (4.70-6.10); White Blood Cell (WBC) Count 6.4 thou/uL (4.8-10.8)
[2020-10-27 13:37] LABS: ALT (SGPT) 10 U/L (8-55); AST (SGOT) 13 U/L (5-34); Albumin 3.3 g/dL (3.4-4.8); Alkaline Phosphatase 56 U/L (40-110); Anion Gap 15 mmol/L (10-20); BUN (Urea Nitrogen) 27 mg/dL (8.4-25.7); Bilirubin, Total 0.2 mg/dL (0.2-1.2); Calc. Creatinine Clearance 0 mL/min (70-130); Calcium 9.4 mg/dL (7.8-10.44); Carbon Dioxide 18 mmol/L (23-31); Chloride 101 mmol/L (98-107); Globulin 2.5 g/dL (2.4-3.5); Glucose 307 mg/dL (80-115); Potassium 4.8 mmol/L (3.5-5.1); Protein, Total 5.8 g/dL (5.8-8.1); Sodium 129 mmol/L (136-145)
[2020-10-27] MEDS ORDERED: HYDROcodone/Acetaminophen 10/325 mg Tablet ONE (14:02)
== END 2020-10-27 15:09 | disposition home or self-care (01) ==
LOC: ERS 12:46
DX: R60.0 Localized edema (principal); E11.9 Type 2 diabetes mellitus without complications; E78.5 Hyperlipidemia, unspecified; E78.00 Pure hypercholesterolemia, unspecified; I10 Essential (primary) hypertension; M10.9 Gout, unspecified; F17.210 Nicotine dependence, cigarettes, uncomplicated
CPT/HCPCS: 71045; 80053; 83880; 84484; 85025; 93005

== ENCOUNTER 2020-11-11 17:19 | Inpatient (IN) | payer MEDICARE, MEDICAID ==
[~2020-11-11 17:19] MED LIST: Iopamidol-370 76% 500 ML 1 ML ONE
[2020-11-11 17:48] LABS: Actual Bicarbonate (HCO3v) 25 mEq/L (22-28); Analyzer IN Cardio ER; Base Excess -0.8 mEq/L (-2.0 to +3.0); Calcium, Ionized (venous) 1.19 mmol/L (1.16-1.32); Chloride (VBG) 101 mmol/L (98-106); Hemoglobin (Hb) 12.1 g/dL (12.6-17.4); Potassium (VBG) 4.38 mmol/L (3.70-5.30); Sodium 134.7 mmol/L (133-146); pH (venous) 7.37 (7.32-7.43)
[2020-11-11 19:23] LABS: #Eosinphils 0.1 thou/uL (0.0-0.7); #Lymphocytes 0.9 thou/uL (1.20-3.40); #Monocytes 0.8 thou/uL (0.11-0.59); #Neutrophils 7.4 thou/uL (1.40-6.50); %Basophils 0.4 % (0.0-1.0); %Eosinophils 0.9 % (0.0-10.0); %Lymphocytes 10.2 % (21.0-51.0); %Monocytes 8.3 % (0.0-10.0); %Neutrophils 80.2 % (42.0-75.0); Hemoglobin 12.9 g/dL (14.0-18.0); Mean Corpuscular HGB CONC 33.2 g/dL (32.0-36.0); Mean Corpuscular Hemoglobin 28.1 pg (27.0-31.0); Mean Corpuscular Volume 84.6 fL (78.0-98.0); Mean Platelet Volume 9.5 fL (7.4-10.4); Platelet Count 149 thou/uL (130-400); RBC Distribution Width 12.9 % (11.5-14.5); Red Blood Cell (RBC) Count 4.59 mill/uL (4.70-6.10); White Blood Cell (WBC) Count 9.3 thou/uL (4.8-10.8)
[2020-11-11 19:28] LABS: ALT (SGPT) 21 U/L (8-55); AST (SGOT) 18 U/L (5-34); Albumin 3.7 g/dL (3.4-4.8); Alkaline Phosphatase 75 U/L (40-110); Anion Gap 18 mmol/L (10-20); BUN (Urea Nitrogen) 20 mg/dL (8.4-25.7); Bilirubin, Total 0.3 mg/dL (0.2-1.2); CK (CPK) 208 U/L (30-200); Calc. Creatinine Clearance 0 mL/min (70-130); Calcium 9.7 mg/dL (7.8-10.44); Carbon Dioxide 21 mmol/L (23-31); Chloride 101 mmol/L (98-107); Globulin 2.5 g/dL (2.4-3.5); Glucose 501 mg/dL (80-115); Lipase 147 U/L (8-78); Potassium 4.4 mmol/L (3.5-5.1); Protein, Total 6.2 g/dL (5.8-8.1); Sodium 136 mmol/L (136-145)
[2020-11-11 20:46] LABS: Acetaminophen Less than 6.0 mcg/mL (10.0-30.0); Alcohol Less than 10 mg/dL (Less than 10); Salicylate Less than 8.0 mg/dL (15.0-30.0)
[2020-11-11 21:20] LABS: SARS-CoV-2 NAA Rapid Test Not Detected (NotDetected)
[2020-11-11] MEDS ORDERED: Insulin Regular 300 UNITS/3 ML VIAL ONE (21:56)
[2020-11-11] MEDS ORDERED: Dextrose 50% Abboject 50 ML SYRINGE IVP PRN (23:15)
[2020-11-11] MEDS ORDERED: Ondansetron ODT 4 MG TAB SL PRN (23:15)
[2020-11-11] MEDS ORDERED: Dextrose 5% in Water 1,000 ML IV PRN (23:15)
[2020-11-11] MEDS ORDERED: Insulin Regular 300 UNITS/3 ML VIAL SC PRN (23:15)
[2020-11-11] MEDS ORDERED: Ondansetron PF 4 MG/2 ML Vial IVP PRN (23:15)
[2020-11-11 23:54] LABS: Lactic Acid 2.9 mmol/L (0.5-2.2)
[2020-11-12] MEDS: Sodium Chloride 0.9% 1,000 ML IV SCH ×5 (00:23→19:56)
[2020-11-12 04:32] VITALS: BMI 26.8
[2020-11-12] MEDS ORDERED: Dextrose 5% in Water 1,000 ML IV PRN (08:00)
[2020-11-12] MEDS ORDERED: Dextrose 50% Abboject 50 ML SYRINGE IVP PRN (08:00)
[2020-11-12 08:16] LABS: #Eosinphils 0.2 thou/uL (0.0-0.7); #Monocytes 0.9 thou/uL (0.11-0.59); #Neutrophils 5.1 thou/uL (1.40-6.50); %Basophils 0.5 % (0.0-1.0); %Eosinophils 2.6 % (0.0-10.0); %Lymphocytes 13.9 % (21.0-51.0); %Monocytes 12.3 % (0.0-10.0); %Neutrophils 70.7 % (42.0-75.0); Hemoglobin 11.9 g/dL (14.0-18.0); Mean Corpuscular HGB CONC 33.8 g/dL (32.0-36.0); Mean Corpuscular Hemoglobin 28.7 pg (27.0-31.0); Mean Corpuscular Volume 85.1 fL (78.0-98.0); Mean Platelet Volume 8.4 fL (7.4-10.4); Platelet Count 163 thou/uL (130-400); Red Blood Cell (RBC) Count 4.14 mill/uL (4.70-6.10); White Blood Cell (WBC) Count 7.3 thou/uL (4.8-10.8)
[2020-11-12 08:36] LABS: Anion Gap 10 mmol/L (10-20); BUN (Urea Nitrogen) 16 mg/dL (8.4-25.7); Calc. Creatinine Clearance 60 mL/min (70-130); Calcium 9.1 mg/dL (7.8-10.44); Carbon Dioxide 24 mmol/L (23-31); Chloride 105 mmol/L (98-107); Glucose 264 mg/dL (80-115); Lipase 63 U/L (8-78); Potassium 3.7 mmol/L (3.5-5.1); Sodium 135 mmol/L (136-145)
[2020-11-12] MEDS: Acetaminophen 325 MG TAB PO SCH ×4 (09:28→19:57)
[2020-11-12] MEDS: Alogliptin 25 MG TAB PO SCH (09:29)
[2020-11-12] MEDS: glyBURIDE 5 MG TAB PO SCH ×2 (09:30→19:57)
[2020-11-12] MEDS: Lantus 1000 UNITS/10 ML VIAL SC SCH (09:36)
[2020-11-12] MEDS: Insulin Regular 300 UNITS/3 ML VIAL SC PRN (11:56)
[2020-11-12] MEDS: Simvastatin 10 MG TAB PO SCH (19:57)
[2020-11-13] MEDS: Sodium Chloride 0.9% 1,000 ML IV SCH ×3 (03:30→20:17)
[2020-11-13 04:38] LABS: #Eosinphils 0.3 thou/uL (0.0-0.7); #Lymphocytes 1.5 thou/uL (1.20-3.40); #Monocytes 0.7 thou/uL (0.11-0.59); #Neutrophils 4.5 thou/uL (1.40-6.50); %Basophils 0.7 % (0.0-1.0); %Eosinophils 4.4 % (0.0-10.0); %Lymphocytes 20.7 % (21.0-51.0); %Monocytes 9.7 % (0.0-10.0); %Neutrophils 64.5 % (42.0-75.0); Hemoglobin 10.7 g/dL (14.0-18.0); Mean Corpuscular HGB CONC 31.9 g/dL (32.0-36.0); Mean Corpuscular Hemoglobin 27.5 pg (27.0-31.0); Mean Corpuscular Volume 86.1 fL (78.0-98.0); Mean Platelet Volume 8.8 fL (7.4-10.4); Platelet Count 173 thou/uL (130-400); RBC Distribution Width 12.9 % (11.5-14.5)
[2020-11-13 05:08] LABS: ALT (SGPT) 13 U/L (8-55); AST (SGOT) 11 U/L (5-34); Albumin 2.9 g/dL (3.4-4.8); Alkaline Phosphatase 58 U/L (40-110); Anion Gap 10 mmol/L (10-20); BUN (Urea Nitrogen) 12 mg/dL (8.4-25.7); Bilirubin, Total 0.2 mg/dL (0.2-1.2); Calc. Creatinine Clearance 77 mL/min (70-130); Calcium 8.9 mg/dL (7.8-10.44); Carbon Dioxide 24 mmol/L (23-31); Chloride 106 mmol/L (98-107); Globulin 2.1 g/dL (2.4-3.5); Glucose 210 mg/dL (80-115); Lipase 73 U/L (8-78); Potassium 3.9 mmol/L (3.5-5.1); Sodium 136 mmol/L (136-145)
[2020-11-13 08:39] LABS: Iron 13 ug/dL (65-175); Iron Binding Capacity, Total 241 mcg/dL (261-462)
[2020-11-13] MEDS: Acetaminophen 325 MG TAB PO SCH ×4 (09:32→21:21)
[2020-11-13] MEDS: Alogliptin 25 MG TAB PO SCH (09:33)
[2020-11-13] MEDS: glyBURIDE 5 MG TAB PO SCH ×2 (09:33→21:22)
[2020-11-13] MEDS: Lantus 1000 UNITS/10 ML VIAL SC SCH (09:33)
[2020-11-13 12:10] LABS: Ferritin 46.1 ng/mL (22-322)
[2020-11-13] MEDS: Insulin Regular 300 UNITS/3 ML VIAL SC PRN (17:41)
[2020-11-13] MEDS ORDERED: Pantoprazole 40 MG VIAL IVP SCH (19:30)
[2020-11-13] MEDS ORDERED: GoLYTELY 4,000 ml Bottle PO SCH (20:00)
[2020-11-13] MEDS: Simvastatin 10 MG TAB PO SCH (21:22)
[2020-11-14] MEDS: cloNIDine 0.1 MG TAB PO PRN ×2 (01:54→06:12)
[2020-11-14 07:19] LABS: #Basophils 0.1 thou/uL (0.0-0.2); #Eosinphils 0.3 thou/uL (0.0-0.7); #Lymphocytes 1.4 thou/uL (1.20-3.40); #Monocytes 0.5 thou/uL (0.11-0.59); #Neutrophils 3.7 thou/uL (1.40-6.50); %Basophils 0.9 % (0.0-1.0); %Eosinophils 5.5 % (0.0-10.0); %Lymphocytes 22.8 % (21.0-51.0); %Monocytes 8.8 % (0.0-10.0); %Neutrophils 62.1 % (42.0-75.0); Hemoglobin 10.9 g/dL (14.0-18.0); Mean Corpuscular HGB CONC 32.9 g/dL (32.0-36.0); Mean Corpuscular Hemoglobin 28.4 pg (27.0-31.0); Mean Corpuscular Volume 86.5 fL (78.0-98.0); Mean Platelet Volume 8.2 fL (7.4-10.4); Platelet Count 155 thou/uL (130-400); RBC Distribution Width 12.8 % (11.5-14.5); Red Blood Cell (RBC) Count 3.83 mill/uL (4.70-6.10)
[2020-11-14] MEDS ORDERED: Pantoprazole 40 MG VIAL IVP SCH (09:00)
[2020-11-14] MEDS: Acetaminophen 325 MG TAB PO SCH ×4 (09:10→21:53)
[2020-11-14] MEDS: glyBURIDE 5 MG TAB PO SCH ×2 (09:11→21:53)
[2020-11-14] MEDS: Lantus 1000 UNITS/10 ML VIAL SC SCH (09:11)
[2020-11-14] MEDS: Alogliptin 25 MG TAB PO SCH (09:11)
[2020-11-14] MEDS: Sodium Chloride 0.9% 1,000 ML IV SCH ×2 (11:11→19:30)
[2020-11-14] MEDS ORDERED: PROPOFOL 200 MG/20 ML VIAL ONE (12:16)
[2020-11-14 21:10] VITALS: BP 148/72; TEMP 98.7
[2020-11-14] MEDS: Simvastatin 10 MG TAB PO SCH (21:53)
== END 2020-11-15 00:23 | disposition home or self-care (01) | DRG 393 ==
LOC: ERS 17:19 → 2NO 22:23 → ONC 11-13 15:42
PROVIDERS: ADMIT Specialist; ATTEND Specialist
PROC: 0DB78ZX Excision of Stomach, Pylorus, Via Natural or Artificial Opening Endoscopic, Diagnostic (ICD-10-PCS; principal; 2020-11-14)
PROC: 0DBN8ZX Excision of Sigmoid Colon, Via Natural or Artificial Opening Endoscopic, Diagnostic (ICD-10-PCS; 2020-11-14)
DX: K55.9 Vascular disorder of intestine, unspecified (principal); R57.1 Hypovolemic shock; K85.90 Acute pancreatitis without necrosis or infection, unspecified; N17.9 Acute kidney failure, unspecified; E86.0 Dehydration; Z20.822 Contact with and (suspected) exposure to COVID-19; E11.65 Type 2 diabetes mellitus with hyperglycemia; K52.9 Noninfective gastroenteritis and colitis, unspecified; F32.9 Major depressive disorder, single episode, unspecified; F12.10 Cannabis abuse, uncomplicated; F15.10 Other stimulant abuse, uncomplicated; K29.70 Gastritis, unspecified, without bleeding; M10.9 Gout, unspecified; I95.9 Hypotension, unspecified; Z79.899 Other long term (current) drug therapy; Z79.4 Long term (current) use of insulin; Z79.1 Long term (current) use of non-steroidal anti-inflammatories (NSAID); Z91.19 Patient's noncompliance with other medical treatment and regimen; Z85.46 Personal history of malignant neoplasm of prostate; Z85.51 Personal history of malignant neoplasm of bladder; Z92.3 Personal history of irradiation
CPT/HCPCS: 0240U; 36415; 36416; 70450; 71045; 74177; 80048; 80053; 80307; 82274; 82550; 82607; 82728; 82805; 83540; 83550; 83605; 83690; 84443; 84484; 85025; 87040; 87045; 87046; 87324; 87427; 87449; 88305; 93005; 96374; C9113; J1815; J2704; Q9967

== ENCOUNTER 2020-12-16 11:49 | Outpatient (CLI) | payer MEDICARE ==
[2020-12-16 13:07] LABS: Bilirubin Neg (Negative); Blood, Urine Negative (Negative); Clarity Clear (Clear); Glucose, Urine (Dipstick) >=1000 mg/dL (Negative); Ketone, Urine Negative (Negative); Leukocyte Negative (Negative); Nitrite Negative (Negative); Protein, Urine (Dipstick) Negative (Neg-Trace); Specific Gravity, Urine 1.015 (1.002-1.036); Urobilinogen Normal mg/dL (Less than 2)
[2020-12-16 13:08] LABS: Hemoglobin 11.1 g/dL (13.5-17.5); Mean Corpuscular HGB CONC 32.8 g/dL (32.0-36.0); Mean Corpuscular Hemoglobin 28.3 pg (27.0-33.0); Mean Corpuscular Volume 86.2 fl (81.2-95.1); Platelet Count 202 10x3/uL (150-450); RBC Distribution Width 14.1 % (11.5-14.5); Red Blood Cell (RBC) Count 3.92 10x6/uL (4.32-5.72); White Blood Cell (WBC) Count 5.6 10x3/uL (3.5-10.5)
[2020-12-16 13:23] LABS: Bacteria/HPF None Seen HPF (None Seen); RBC/HPF 0-3 HPF (0-3); Squamous Epithelial 0-3 HPF (0-3); WBC/HPF 0-3 HPF (0-3)
[2020-12-16 13:26] LABS: Anion Gap 16 mmol/L (10-20); BUN (Urea Nitrogen) 29 mg/dL (8.4-25.7); Calc. Creatinine Clearance 0 mL/min (70-130); Calcium 10.6 mg/dL (7.8-10.44); Carbon Dioxide 23 mmol/L (23-31); Chloride 105 mmol/L (98-107); Glucose 407 mg/dL (80-115); Potassium 6.2 mmol/L (3.5-5.1); Sodium 138 mmol/L (136-145)
[2020-12-16 13:48] LABS: INR-International Normal Ratio 0.9; PTT 21.1 sec (22.0-33.0); Prothrombin Time 9.8 sec (9.5-12.1)
[2020-12-16 20:54] LABS: SARS-CoV-2 PCR by NAA Not Detected (NotDetected)
== END 2020-12-16 11:50 | disposition home or self-care (01) ==
LOC: LABBT 11:49
PROVIDERS: ATTEND Urology
DX: Z01.812 Encounter for preprocedural laboratory examination (principal); N32.9 Bladder disorder, unspecified; Z20.822 Contact with and (suspected) exposure to COVID-19
CPT/HCPCS: 80048; 81001; 85027; 85610; 85730; 87086; U0003; U0005

== ENCOUNTER 2020-12-21 11:18 | Day surgery (SDC) | payer MEDICARE, MEDICAID ==
[2020-12-18 14:45] VITALS: BMI 25.1
[2020-12-21] MEDS ORDERED: Levofloxacin 500 mg/D5W 100 ml Premix Bag ONE (11:35)
[2020-12-21] MEDS ORDERED: Ondansetron ODT 4 MG TAB ONE (13:37)
[2020-12-21] MEDS ORDERED: Fentanyl 100 MCG/2 ML VIAL ONE ×3 (13:37→16:07)
[2020-12-21] MEDS ORDERED: mitoMYcin 40 MG in Sodium Chloride 0.9% 40 ML IV SCH (14:00)
[2020-12-21] MEDS ORDERED: PROPOFOL 200 MG/20 ML VIAL ONE (14:06)
[2020-12-21] MEDS ORDERED: Rocuronium Bromide 10 MG/ML (10ML VIAL) ONE (14:06)
[2020-12-21] MEDS ORDERED: Ondansetron PF 4 MG/2 ML Vial ONE (14:06)
[2020-12-21] MEDS ORDERED: Lidocaine 1% PF 5 ML VIAL ONE (14:06)
[2020-12-21] MEDS ORDERED: Glycopyrrolate 0.2 MG/ML 5 ML SYRINGE ONE (14:06)
[2020-12-21] MEDS ORDERED: Iothalamate Meglumine 60% 30 ML VIAL FS ONE (15:04)
[2020-12-21] MEDS ORDERED: Meperidine HCl/PF 25 MG/ML VIAL ONE (16:11)
[2020-12-21] MEDS ORDERED: HYDROcodone/Acetaminophen 5/325 mg Tablet ONE (20:16)
== END 2020-12-21 20:45 | disposition home or self-care (01) ==
LOC: SDC 11:18
PROVIDERS: ATTEND Urology
PROC: 0T5B8ZZ Destruction of Bladder, Via Natural or Artificial Opening Endoscopic (ICD-10-PCS; principal; 2020-12-21)
DX: C67.9 Malignant neoplasm of bladder, unspecified (principal); E11.9 Type 2 diabetes mellitus without complications; M10.9 Gout, unspecified; Z79.84 Long term (current) use of oral hypoglycemic drugs; Z79.899 Other long term (current) drug therapy
CPT/HCPCS: 52240; 74420; 82962; C2617; J9280; 36416; 88305; J1956; J2175; J2405; J2704; J3010; Q0162

== ENCOUNTER 2021-07-21 15:40 | Inpatient (IN) | payer MEDICARE, MEDICAID ==
[2021-07-21 17:09] LABS: #Eosinphils 0.6 thou/uL (0.0-0.7); #Monocytes 0.8 thou/uL (0.11-0.59); #Neutrophils 6.4 thou/uL (1.40-6.50); %Basophils 0.4 % (0.0-1.0); %Eosinophils 5.8 % (0.0-10.0); %Lymphocytes 20.7 % (21.0-51.0); %Monocytes 7.7 % (0.0-10.0); %Neutrophils 65.4 % (42.0-75.0); Hemoglobin 10.3 g/dL (14.0-18.0); Mean Corpuscular HGB CONC 32.3 g/dL (32.0-36.0); Mean Corpuscular Volume 83.6 fL (78.0-98.0); Mean Platelet Volume 7.5 fL (7.4-10.4); Platelet Count 291 thou/uL (130-400); White Blood Cell (WBC) Count 9.7 thou/uL (4.8-10.8)
[2021-07-21] MEDS ORDERED: Cefepime 2 GM VIAL ONE (17:33)
[2021-07-21] MEDS ORDERED: Vancomycin 1 GM/200 ML BAG ONE (17:33)
[2021-07-21 17:35] LABS: ALT (SGPT) 20 U/L (8-55); AST (SGOT) 18 U/L (5-34); Albumin 3.5 g/dL (3.4-4.8); Alkaline Phosphatase 90 U/L (40-110); Anion Gap 11 mmol/L (10-20); BUN (Urea Nitrogen) 25 mg/dL (8.4-25.7); Bilirubin, Total 0.2 mg/dL (0.2-1.2); Calc. Creatinine Clearance 0 mL/min (70-130); Calcium 9.7 mg/dL (7.8-10.44); Carbon Dioxide 27 mmol/L (23-31); Chloride 105 mmol/L (98-107); Globulin 2.8 g/dL (2.4-3.5); Glucose 115 mg/dL (80-115); Potassium 4.4 mmol/L (3.5-5.1); Protein, Total 6.3 g/dL (5.8-8.1); Sodium 139 mmol/L (136-145)
[2021-07-21] MEDS ORDERED: Ondansetron PF 4 MG/2 ML Vial IVP PRN (19:12)
[2021-07-21] MEDS ORDERED: Acetaminophen 650 MG Suppository PR PRN (19:12)
[2021-07-21] MEDS ORDERED: Ondansetron ODT 4 MG TAB PO PRN (19:12)
[2021-07-21] MEDS ORDERED: Piperacillin/Tazobactam 3.375 GM in Sodium Chloride 0.9% 100 ML IVPB SCH ×2 (19:15→19:45)
[2021-07-21 20:36] LABS: Lactic Acid 1.4 mmol/L (0.5-2.2)
[2021-07-21 21:11] VITALS: BMI 26.8
[2021-07-21] MEDS: Acetaminophen 325 MG TAB PO PRN (21:16)
[2021-07-21] MEDS ORDERED: HumaLOG 300 UNITS/3 ML VIAL SC PRN ×2 (22:37)
[2021-07-21] MEDS ORDERED: Dextrose 50% Abboject 50 ML SYRINGE SLOW IVP PRN (22:37)
[2021-07-21] MEDS ORDERED: Dextrose 5% in Water 1,000 ML IV PRN (22:37)
[2021-07-21 22:58] LABS: SARS-CoV-2 NAA Rapid Test Not Detected (NotDetected)
[2021-07-22] MEDS: Piperacillin/Tazobactam 3.375 GM in Sodium Chloride 0.9% 100 ML IVPB SCH ×3 (01:05→17:00)
[2021-07-22] MEDS ORDERED: hydrALAZINE 20 MG/ML VIAL SLOW IVP PRN (04:14)
[2021-07-22 05:17] LABS: #Basophils 0.1 thou/uL (0.0-0.2); #Eosinphils 0.6 thou/uL (0.0-0.7); #Lymphocytes 2.3 thou/uL (1.20-3.40); #Monocytes 1.1 thou/uL (0.11-0.59); #Neutrophils 9.4 thou/uL (1.40-6.50); %Basophils 0.4 % (0.0-1.0); %Eosinophils 4.2 % (0.0-10.0); %Monocytes 8.5 % (0.0-10.0); %Neutrophils 69.9 % (42.0-75.0); Hemoglobin 11.4 g/dL (14.0-18.0); Mean Corpuscular HGB CONC 32.6 g/dL (32.0-36.0); Mean Corpuscular Hemoglobin 27.2 pg (27.0-31.0); Mean Corpuscular Volume 83.3 fL (78.0-98.0); Mean Platelet Volume 7.8 fL (7.4-10.4); Platelet Count 338 thou/uL (130-400); RBC Distribution Width 13.2 % (11.5-14.5); Red Blood Cell (RBC) Count 4.18 mill/uL (4.70-6.10); White Blood Cell (WBC) Count 13.5 thou/uL (4.8-10.8)
[2021-07-22 05:37] LABS: Anion Gap 15 mmol/L (10-20); BUN (Urea Nitrogen) 18 mg/dL (8.4-25.7); Calc. Creatinine Clearance 96 mL/min (70-130); Calcium 9.4 mg/dL (7.8-10.44); Carbon Dioxide 18 mmol/L (23-31); Chloride 108 mmol/L (98-107); Potassium 4.4 mmol/L (3.5-5.1); Sodium 137 mmol/L (136-145)
[2021-07-22 05:41] LABS: Glucose 42 mg/dL (80-115)
[2021-07-22] MEDS: Vancomycin 1.5 GRAM/300 ML BAG 1.5 GM in Premix Bag 1 BAG IVPB SCH ×2 (05:46→18:35)
[2021-07-22] MEDS: Enoxaparin Sodium 40 MG/0.4 ML SYRINGE SC SCH (08:08)
[2021-07-22] MEDS ORDERED: Magnevist 469MG/ML 20 ML VIAL ONE (10:09)
[2021-07-22] MEDS: Acetaminophen 325 MG TAB PO PRN (17:01)
[2021-07-23] MEDS: Piperacillin/Tazobactam 3.375 GM in Sodium Chloride 0.9% 100 ML IVPB SCH ×2 (00:58→09:08)
[2021-07-23] MEDS: Vancomycin 1.5 GRAM/300 ML BAG 1.5 GM in Premix Bag 1 BAG IVPB SCH (05:19)
[2021-07-23 05:29] LABS: Vancomycin, Trough 18.5 ug/mL
[2021-07-23] MEDS: Enoxaparin Sodium 40 MG/0.4 ML SYRINGE SC SCH (09:07)
[2021-07-23] MEDS ORDERED: Amlodipine 10 MG TAB PO SCH (09:30)
[2021-07-23] MEDS ORDERED: Fentanyl 250 MCG/5 ML VIAL ONE (14:02)
[2021-07-23] MEDS ORDERED: Ondansetron PF 4 MG/2 ML Vial ONE (14:07)
[2021-07-23] MEDS ORDERED: Lidocaine 1% PF 5 ML VIAL ONE (14:07)
[2021-07-23] MEDS ORDERED: Dexamethasone 20 MG/5 ML VIAL ONE (14:07)
[2021-07-23] MEDS ORDERED: PROPOFOL 200 MG/20 ML VIAL ONE (14:07)
[2021-07-23] MEDS ORDERED: traMADol HCl 50 MG TAB PO PRN (14:09)
[2021-07-23] MEDS ORDERED: Ibuprofen 600 MG TAB PO PRN (14:09)
[2021-07-23] MEDS ORDERED: Promethazine HCl 25 MG/ML VIAL IM PRN (14:52)
[2021-07-23] MEDS ORDERED: Promethazine HCl 25 MG/ML VIAL IVPB PRN (14:52)
[2021-07-23] MEDS ORDERED: Ondansetron HCl/PF 4 MG/2 ML Vial IVP PRN (14:52)
[2021-07-23 15:38] VITALS: BP 161/90; TEMP 97
[2021-07-23] MEDS ORDERED: glyBURIDE 5 MG TAB PO SCH (16:30)
[2021-07-23] MEDS ORDERED: metFORMIN 500 MG TAB PO SCH (17:00)
[2021-07-23] MEDS ORDERED: Acetaminophen 500 MG TAB PO SCH (18:00)
[2021-07-23] MEDS ORDERED: Simvastatin 10 MG TAB PO SCH (21:00)
[2021-07-23] MEDS ORDERED: Sulfameth/Trimethoprim DS 800-160mg TAB PO SCH (21:00)
[2021-07-23] MEDS ORDERED: Terazosin HCl 5 MG CAP PO SCH (21:00)
[2021-07-24] MEDS ORDERED: Furosemide 40 MG TAB PO SCH (09:00)
[2021-07-24] MEDS ORDERED: Amlodipine 10 MG TAB PO SCH (09:00)
[2021-07-24] MEDS ORDERED: Alogliptin 25 MG TAB PO SCH (09:00)
== END 2021-07-23 17:54 | disposition home health service (06) | DRG 617 ==
LOC: ERS 15:40 → SURG B 18:22
PROVIDERS: ADMIT Student in an Organized Health Care Education/Training Program; ATTEND Internal Medicine
PROC: 0Y6R0Z1 Detachment at Right 2nd Toe, High, Open Approach (ICD-10-PCS; principal; 2021-07-23)
DX: E11.69 Type 2 diabetes mellitus with other specified complication (principal); M86.171 Other acute osteomyelitis, right ankle and foot; Z20.822 Contact with and (suspected) exposure to COVID-19; C61 Malignant neoplasm of prostate; E78.5 Hyperlipidemia, unspecified; M10.9 Gout, unspecified; F17.210 Nicotine dependence, cigarettes, uncomplicated; D63.8 Anemia in other chronic diseases classified elsewhere; I10 Essential (primary) hypertension; E11.641 Type 2 diabetes mellitus with hypoglycemia with coma; E78.00 Pure hypercholesterolemia, unspecified; Z79.4 Long term (current) use of insulin; Z79.84 Long term (current) use of oral hypoglycemic drugs; Z79.899 Other long term (current) drug therapy; Z90.09 Acquired absence of other part of head and neck
CPT/HCPCS: 36415; 36416; 80048; 80053; 80202; 83605; 85025; 87040; 88305; 88311; A9579; J0692; J1100; J1650; J1815; J2405; J2543; J2704; J3010; J3370; J3490; U0002

== ENCOUNTER 2021-09-12 20:28 | Emergency (ER) | payer MEDICARE ==
[2021-09-12 22:10] LABS: #Eosinphils 0.4 thou/uL (0.0-0.7); #Lymphocytes 1.2 thou/uL (1.20-3.40); #Monocytes 0.6 thou/uL (0.11-0.59); #Neutrophils 2.7 thou/uL (1.40-6.50); %Basophils 0.5 % (0.0-1.0); %Eosinophils 7.5 % (0.0-10.0); %Lymphocytes 24.2 % (21.0-51.0); %Neutrophils 55.9 % (42.0-75.0); Hemoglobin 12.7 g/dL (14.0-18.0); Mean Corpuscular HGB CONC 31.7 g/dL (32.0-36.0); Mean Corpuscular Hemoglobin 27.8 pg (27.0-31.0); Mean Corpuscular Volume 87.7 fL (78.0-98.0); Mean Platelet Volume 8.4 fL (7.4-10.4); Platelet Count 190 thou/uL (130-400); RBC Distribution Width 12.8 % (11.5-14.5); Red Blood Cell (RBC) Count 4.57 mill/uL (4.70-6.10); White Blood Cell (WBC) Count 4.8 thou/uL (4.8-10.8)
[2021-09-12 22:32] LABS: ALT (SGPT) 22 U/L (8-55); AST (SGOT) 21 U/L (5-34); Albumin 3.6 g/dL (3.4-4.8); Alkaline Phosphatase 79 U/L (40-110); Anion Gap 15 mmol/L (10-20); BUN (Urea Nitrogen) 31 mg/dL (8.4-25.7); Bilirubin, Total 0.2 mg/dL (0.2-1.2); Calc. Creatinine Clearance 0 mL/min (70-130); Calcium 9.5 mg/dL (7.8-10.44); Carbon Dioxide 22 mmol/L (23-31); Chloride 103 mmol/L (98-107); Globulin 2.8 g/dL (2.4-3.5); Glucose 306 mg/dL (80-115); Potassium 5.2 mmol/L (3.5-5.1); Protein, Total 6.4 g/dL (5.8-8.1); Sodium 135 mmol/L (136-145)
== END 2021-09-12 23:09 | disposition home or self-care (01) ==
LOC: ERS 20:28
DX: L03.031 Cellulitis of right toe (principal); E11.65 Type 2 diabetes mellitus with hyperglycemia; R79.89 Other specified abnormal findings of blood chemistry; I10 Essential (primary) hypertension; E78.5 Hyperlipidemia, unspecified; E78.00 Pure hypercholesterolemia, unspecified; Z79.84 Long term (current) use of oral hypoglycemic drugs; Z79.899 Other long term (current) drug therapy
CPT/HCPCS: 36415; 80053; 85025